=== PATIENT | male | born 1970 | race Caucasian/White ===

== ENCOUNTER 2019-08-08 11:46 | Outpatient (CLI) | payer BC, SELFPAY ==
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
== END 2019-08-08 12:06 ==
PROVIDERS: PCP Specialist/Technologist Athletic Trainer; Visit Provider Nurse Practitioner Family
DX: M79.645 Pain in left finger(s) (principal); M79.89 Other specified soft tissue disorders; M19.042 Primary osteoarthritis, left hand
CPT/HCPCS: 73140

== ENCOUNTER 2020-05-15 16:41 | Outpatient (REF) | payer BC, SELFPAY ==
[2020-05-15 20:35] LABS: Anion Gap 12.6 mmol/L (3-11); BUN 16 mg/dL (7-18); CO2 21.4 mmol/L (21.0-32.0); CREATININE 0.87 mg/dL (0.70-1.30); Calcium 9.1 mg/dL (8.5-10.1); Calculated LDL 131 mg/dL (<100); Chloride 103 mmol/L (98-107); Cholesterol 189 mg/dL (<200); Glucose 94 mg/dL (74-106); HDL Cholesterol 47 mg/dL (40-60); Magnesium 1.9 mg/dL (1.8-2.4); Sodium 137 mmol/L (136-145); Triglyceride 55 mg/dL (<150); Vitamin B12 514 pg/mL (193-986)
== END 2020-05-15 17:01 ==
LOC: NCHCN 16:41
PROVIDERS: PCP Specialist/Technologist Athletic Trainer; Visit Provider Nurse Practitioner Family
DX: Z00.00 Encounter for general adult medical examination without abnormal findings (principal); K21.9 Gastro-esophageal reflux disease without esophagitis
CPT/HCPCS: 80048; 80061; 82607; 83735

== ENCOUNTER 2021-06-03 18:58 | Outpatient (REF) | payer BC, SELFPAY ==
[2021-06-03 21:02] LABS: ALT 32 U/L (16-63); AST 20 U/L (15-37); Alkaline Phosphatase 79 U/L (46-116); Anion Gap 10.3 mmol/L (3-11); BUN 9 mg/dL (7-18); Bilirubin, Total 0.4 mg/dL (0.2-1.0); CO2 25.7 mmol/L (21.0-32.0); Calcium 8.9 mg/dL (8.5-10.1); Chloride 106 mmol/L (98-107); Glucose 96 mg/dL (74-106); Potassium 3.8 mmol/L (3.5-5.1); Sodium 142 mmol/L (136-145); TSH (W/Ref FT4) 2.01 uIU/mL (0.36-3.74)
== END 2021-06-03 18:59 | disposition home or self-care (01) ==
LOC: NCHCN 18:58
PROVIDERS: Visit Provider Nurse Practitioner Family
DX: Z00.00 Encounter for general adult medical examination without abnormal findings (principal); F10.99 Alcohol use, unspecified with unspecified alcohol-induced disorder; E04.9 Nontoxic goiter, unspecified
CPT/HCPCS: 80053; 84443

== ENCOUNTER 2021-11-29 18:16 | Outpatient (REF) | payer BC, SELFPAY ==
[2021-12-08 10:53] LABS: Methylphenidate Negative ng/mL (Cutoff: 10); Ritalinic Acid 318 ng/mL (Cutoff: 50)
== END 2021-11-29 18:17 | disposition home or self-care (01) ==
LOC: NCHCN 18:16
PROVIDERS: Visit Provider Nurse Practitioner Family
DX: F90.0 Attention-deficit hyperactivity disorder, predominantly inattentive type (principal)
CPT/HCPCS: 80360

== ENCOUNTER 2022-04-11 17:11 | Outpatient (REF) | payer OTHER, SELFPAY ==
--- NOTE | 2022-04-11 16:00 | ORMUBX_PTH ---
PATIENT: Connor Baltazar LOC: [facility] U#:[id number] AGE/SX: 51/M ROOM: RE04/11/[address]: Rodriguez Fabian MD : [id number] BED: DIS: 04/11/2022 SPEC #: [id number] RECD: 04/11/22 18:37 STATUS: ALEXANDRA REQ #: [id number] ERIN: 04/11/22 16:[address]: Rodriguez Fabian DEPT: Surgical Specimen RECD BY: Pooja Gonzales ENTERED: 04/11/22 18:38 SP TYPE: ORMUBX OT DR: Gina Garza Tissues: 1 - MUCOSA, NOS Procedures: GROSS AND MICRO LEVEL 4 SPECIAL STAIN 1 Comments: [id number]
== END 2022-04-11 17:12 | disposition home or self-care (01) ==
LOC: LBN 17:11
PROVIDERS: PCP Nurse Practitioner Family; Visit Provider Otolaryngology
DX: K13.70 Unspecified lesions of oral mucosa (principal); F17.200 Nicotine dependence, unspecified, uncomplicated
CPT/HCPCS: 88305; 88312

== ENCOUNTER 2022-11-15 18:25 | Outpatient (REF) | payer BC, SELFPAY ==
[2022-11-15 19:01] LABS: Anion Gap 9.5 mmol/L (3-11); BUN 13 mg/dL (7-18); CO2 24.5 mmol/L (21.0-32.0); CREATININE 0.8 mg/dL (0.70-1.30); Calcium 8.8 mg/dL (8.5-10.1); Chloride 106 mmol/L (98-107); Estimated GFR 106.48 (mL/min/1.73m2); Glucose 94 mg/dL (74-106); Potassium 4.5 mmol/L (3.5-5.1); Sodium 140 mmol/L (136-145)
== END 2022-11-15 18:26 | disposition home or self-care (01) ==
LOC: NCHCN 18:25
PROVIDERS: PCP Nurse Practitioner Family; Visit Provider Nurse Practitioner Family
DX: U07.1 COVID-19 (principal)
CPT/HCPCS: 80048

== ENCOUNTER 2023-07-09 13:21 | Emergency (ER) | payer BC, SELFPAY ==
[2023-07-09 13:25] VITALS: BP 139/86; PULSE 78; RESP 16; TEMP 37; O2SAT 96
[2023-07-09 13:30] VITALS: BP 125/90; PULSE 74; RESP 16; O2SAT 96
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
--- NOTE | 2023-07-09 15:08 | DI.RAD_ITS ---
Exam(s) XR SHOULDER RT COMPLETE 2+V EXAM: XR SHOULDER RT COMPLETE 2+V CLINICAL HISTORY: weakness, shoulder pain after pulling generator. TECHNIQUE: 2D digital imaging was performed. Five views. FINDINGS: BONES: No acute fracture is present. No bony destructive lesion is seen. JOINTS: No dislocation present. Degenerative changes AC joint. Mild spurring at glenoid. SOFT TISSUE: Calcification adjacent to greater tuberosity could indicate calcific tendinosis. Additi onal chronic appearing calcification lateral to the tip of the acromion. IMPRESSION: Degenerative changes. No acute abnormality. DATA REPOSITORY: RADIATION DOSE DELIVERED:
--- NOTE | 2023-07-09 15:21 | NUR.NOTE ---
Nursing Note: referral to ortho
--- NOTE | 2023-07-09 15:29 | DI.VRAD_ITS ---
PROCEDURE INFORMATION: Exam: XR Right Shoulder Exam date and time: 07/09/2023 3:01 PM Age: 52 years old Clinical indication: Other: Weakness, shoulder pain after pulling generator TECHNIQUE: Imaging protocol: Radiologic exam of the right shoulder. Views: 2 or more views. COMPARISON: CT Shoulder^SHOULDER (Adult) 22/06/2017 13:36 FINDINGS: Bones/joints: Degenerative changes of the acromioclavicular joint. No evidence for acute bony injury. Mild degenerative changes of the glenohumeral joint. Soft tissues: Soft tissue calcification along the superolateral aspect of the shoulder. IMPRESSION: 1. No acute bony findings. If clinical symptoms persist recommend followup film in 7-10 days. 2. Additional findings as discussed above. Dictated and Authenticated by: Fidelia Zuluaga MD. Ordering:JUNAID Eckert MD
[2023-07-09 15:30] VITALS: BP 146/84; PULSE 74; RESP 16; O2SAT 96
--- NOTE | 2023-07-10 07:58 | NUR.NOTE ---
Accessed Pts chart to complete [facility] document.
== END 2023-07-09 15:31 | disposition home or self-care (01) ==
PROVIDERS: Emergency Provider Physician Assistant; PCP Nurse Practitioner Family
DX: M25.511 Pain in right shoulder (principal); M25.812 Other specified joint disorders, left shoulder; M19.011 Primary osteoarthritis, right shoulder; F17.210 Nicotine dependence, cigarettes, uncomplicated
CPT/HCPCS: 99283; 73030

== ENCOUNTER 2023-08-01 01:21 | Outpatient (CLI) | payer BC, SELFPAY ==
[2023-08-01] MEDS: Levalbuterol HFA 15 GM INH 4 PUFF IH (08:52)
[2023-08-01] MEDS: Inhaler, Assist Device 1 EACH MC (08:52)
--- NOTE | 2023-08-01 10:36 | W.PFT ---
Date of service: 08/01/23 Time of Service: 07:54 Pulmonary Function Test Result Indications: COPD Interpretation Spirometry: There is no airflow limitation. No significant bronchodilator response. Lung Volumes: There is air trapping Diffusion Capacity: Normal diffusion Airway Pressure: Normal airways resistance Impression Normal pulmonary function with some air trapping Clinical Correlation therefore is recommended.
== END 2023-08-01 01:22 | disposition home or self-care (01) ==
LOC: RT 01:21
PROVIDERS: PCP Nurse Practitioner Family; Visit Provider Student in an Organized Health Care Education/Training Program
DX: J44.9 Chronic obstructive pulmonary disease, unspecified (principal)
CPT/HCPCS: 94060; 94726; 94729

== ENCOUNTER 2023-10-10 14:30 | Emergency (ER) | payer BC, SELFPAY ==
[2023-10-10] VITALS (14 sets, daily range): BP systolic 132–147; BP diastolic 86–94; PULSE 72–90; RESP 16–27; TEMP 36.5; O2SAT 93–99
--- OUTSIDE RECORDS SUMMARY | 2023-10-10 14:50 | XMS_ITS | Continuity of Care Document ---
Author Name Unknown Organization [facility] Address [address] [place] [id number] Encounter LTTL_PR FIN NBR [id number] Date(s): 09/20/22 - 09/20/[address] [id number] Encounter Diagnosis Encounter for drug screening(Discharge Diagnosis) - 09/20/22 Discharge Disposition: Home or Self Care Attending Physician: Xin Story PA-C
--- NOTE | 2023-10-10 16:06 | ED.GENADUL_ITS ---
HPI General Mode of arrival: ambulatory . Date/Time Provider Initiated Documentation: 10/10/23 14:30 . Limitations to Documentation: no limitations . Information obtained by: patient . History of Present Illness 52 year old M presents to the emergency department with the chief complaint of coughing up phlegm , described as moderate, Patient started experiencing this week(s) (3) and it has been intermittent. No relieving factors improve symptom(s), No exacerbating factors reported . Patient notes denies chest pain, diaphoresis, fever/chills and shortness of breath. Patient did receive the following treatments prior to arrival, none Related Data Home Medications Medication Instructions Recorded Confirmed albuterol sulfate 90 mcg/actuation 2 puff inhalation Q6H PRN 04/24/17 07/27/23 aerosol inhaler (ProAir HFA) methylphenidate HCl 20 mg tablet 20 mg PO DAILY 05/22/17 07/09/23 (Ritalin) pantoprazole 40 mg tablet,delayed 40 mg PO DAILY 12/01/21 07/27/23 release guaifenesin 600 mg tablet, 600 mg PO BID 05/17/22 07/27/23 extended release 12 hr (Mucinex) methylphenidate HCl 54 mg 54 mg PO QAM 05/17/22 07/27/23 tablet,extended release 24 hr tiotropium 2.5 mcg-olodaterol 2.5 2 puff inhalation DAILY #4 grams 07/27/23 07/27/23 mcg/actuation mist for inhalation (Stiolto Respimat) levofloxacin 750 mg tablet 750 mg PO DAILY #7 tabs 10/10/23 prednisone 20 mg tablet 60 mg (3 x 20 mg) PO DAILY 4 days 10/10/23 #12 tabs Previous Rx's Medication Instructions Recorded tiotropium 2.5 mcg-olodaterol 2.5 2 puff inhalation DAILY #4 grams 07/27/23 mcg/actuation mist for inhalation (Stiolto Respimat) levofloxacin 750 mg tablet 750 mg PO DAILY #7 tabs 10/10/23 prednisone 20 mg tablet 60 mg (3 x 20 mg) PO DAILY 4 days 10/10/23 #12 tabs Allergies Allergy/AdvReac Type Severity Reaction Status Date / Time codeine Allergy Verified 07/27/23 08:52 varenicline tartrate AdvReac Severe mood Unverified 07/27/23 08:52 [From Chantix] bupropion HCl AdvReac Mild rash Unverified 07/27/23 08:52 [From Wellbutrin] General Stated Complaint: RespSymp JHONY: 3 Review of Systems All systems reviewed & are unremarkable except as noted in HPI and below Constitutional Constitutional: Denies chills, Denies fever(s) and Denies weakness Cardiovascular Cardiovascular: Denies chest pain and Denies dyspnea Respiratory Respiratory: Reports cough and Denies dyspnea Gastrointestinal Gastrointestinal: Denies abdominal pain, Denies nausea and Denies vomiting Genitourinary Genitourinary: Denies dysuria Musculoskeletal Musculoskeletal: Denies joint swelling Integumentary/Breasts Skin/Breast: Denies rash Neurologic Neurologic: Denies weakness PFSH All Active Problems (Updated 10/10/23 @ 17:23 by Antonio Garcia MD) Productive cough (Acute) Impacted cerumen of both ears (Acute) Oral thrush (Acute) Mouth lesion (Acute) Nicotine dependence, cigarettes, uncomplicated (Acute) Smoker (Acute) Anxiety and depression (Chronic) Anger (Acute) ADD (attention deficit disorder) (Acute) GERD (gastroesophageal reflux disease) (Chronic) Constipation (Acute) Asthma (Chronic) Black stools (Acute) Abdominal distension (Acute) Dyspnea (Acute) Hiatal hernia (Chronic) COPD (chronic obstructive pulmonary disease) (Chronic) Andrews esophagus (Acute) Alcohol use (Acute) Enlarged thyroid (Acute) Oral mucosal lesion (Acute) Irritation of right eye (Acute) Complete tear of left rotator cuff (Acute 07/17/17) Social History Smoking/Tobacco Use Status: Current every day Tobacco Type: cigarettes Smoking risk assessment performed?: Yes Alcohol Intake: current Alcohol Intake frequency: 0-2 drinks per day Alcohol type: beer and hard liquor Drug use: Occasionally Substance use type: marijuana Housing: house Do you feel safe at home: Yes Do you feel safe in your relationship?: Yes Additional Social history: Current tobacco user 1pck/day , Started in 1984 with a pack year of 60+. PAWSS Have you Been Recently Intoxicated or Drunk Within the Last 30 days?: Yes Have you Ever Experienced Previous Episodes of Alcohol Withdrawal?: No Have you ever Experienced Withdrawal Seizures?: No Have you ever Experienced Delirium Tremens(DT)s?: No Have you ever undergone Alcohol Rehabilitation Treatment (i.e, inpt ot outpatient treatment programs)?: No Have you ever Experienced Blackouts?: No Have you ever Combined Alcohol with other Downers within the last 90 days?: No Have you ever Combined Alcohol with any other Substance of Abuse during the last 90 days?: No Positive Blood Alcohol level on Presentation? [PCS.BAL]: No Evidence of Increased Autonomic Activity (i.e. HR>120, tremor, sweating, agitation, nausea)?: No Result: 1 Exam Const General: no acute distress Orientation: alert HENMT Head: normal to inspection Ears: external ears normal General nose exam: external nose normal Mouth: moist mucous membranes Eyes General: appearance normal, both eyes and all related structures Neck Neck: normal visual inspection Resp Effort & Inspection: normal respiratory effort and able to speak in complete sentences Auscultation: wheezes Cardio Jugular venous pressure: no JVD Rate: regular rate Heart Sounds: no murmurs Skin General skin exam: no rashes or lesions noted Neuro General: patient alert and patient oriented x3 Extrem General: normal to inspection Psych Mental Status: mental status grossly normal Course Vital Signs Vital signs: Vital Signs Temperature 36.5 C 10/10/23 14:43 Pulse 86 10/10/23 14:43 Respiratory Rate 18 10/10/23 14:43 Blood Pressure 144/86 H 10/10/23 14:43 Pulse Oximetry 98 10/10/23 14:43 Temperature 36.5 C 10/10/23 14:43 Temperature Source Temporal Artery Scan 10/10/23 14:43 Pulse 86 10/10/23 14:43 Respiratory Rate 18 10/10/23 14:43 Respiratory Effort Short of Breath 10/10/23 16:03 Blood Pressure 144/86 H 10/10/23 14:43 Blood Pressure Position Sitting 10/10/23 14:43 Pulse Oximetry 98 10/10/23 14:43 Oxygen Delivery Method Room Air 10/10/23 14:43 Oxygen Flow Rate 0 10/10/23 14:43 Medical Decision Making 52 yo male with hx of smoking on inhalers who comes in with 3 weeks of p roductive cough. Denies any chest pain or dyspnea. HE is caox4 on arrival walking without respiratory distress and speaking in full sentences. HE does have wheezing in all lung schwartz on exam bilaterally, no jvd, no leg swelling no calf tenderness. Suspect copd exacerbation vs pneumonia, will check cbc, cmp, procalcitonin and cxr and treat with duoneb and solumedrol xray and labs unremarkable, pt stable, given increased cough from baseline will start antibiotics and also short course of prednisone. ADvised to f/u with pcp and return precautions given. HE has also noticed an increase in his gerd symptoms, has no abdmoinal tenderness, advised he can continue pantoprazole and also take tums as needed and to follow label instructions Differential Diagnosis Differential Diagnosis: pneumonia, copd, bronchitis Medical Records Medical records reviewed: Yes I reviewed the patient's medical records. Imaging Data Radiologic Study: Attestation: I personally reviewed and interpreted this imaging study as follows: Imaging: X-Ray Radiologist's impression: no acute findings Lab Data Lab results reviewed: Yes I reviewed the patient's lab results. Quality:SDOH Health Related Social Needs: No Data to Display Discharge Plan Disposition Patient Disposition: Home Condition: Stable Discharge Details Clinical Impression: Productive cough Primary Care Provider: Gina Garza ED Provider: Antonio Garcia Garden Meds and New Rx's Prescriptions: New prednisone 20 mg tablet 60 mg PO DAILY 4 Days Qty: 12 0RF levofloxacin 750 mg tablet 750 mg PO DAILY Qty: 7 0RF Continued methylphenidate HCl 54 mg tablet extended release 24hr 54 mg PO QAM Rx Instructions: per pt (05/17/22) Stiolto Respimat 2.5-2.5 mcg/actuation mist 2 puff inhalation DAILY Qty: 4 12RF albuterol sulfate [ProAir HFA] 8.5 GM HFA aerosol inhaler 2 puff Inhalation Q6H PRN methylphenidate HCl [Ritalin] 20 MG tablet 20 mg PO DAILY pantoprazole 40 mg tablet,delayed release (DR/EC) 40 mg PO DAILY guaifenesin [Mucinex] 600 mg tablet extended release 12hr 600 mg PO BID Rx Instructions: as needed Discharge Instructions Additional Instructions: your blood work and xray did not show any concerning findings follow up with your primary care provider within 1 week you can take tums along with your pantoprazole, follow dosing instructions on the packaging if you feel more ill, have difficulty breathing or severe pain return to the emergency department
[2023-10-10] MEDS: Albuterol/Ipratropium 3 ML UPD VIAL UPD (16:14)
[2023-10-10] MEDS: methylPREDNISolone SUCC 125 MG VIAL IVP (16:14)
[2023-10-10 16:16] LABS: Abs Immature Grans 0.03 10^3/uL (0.0-0.06); Absolute Basophil Count 0.06 10^3/uL (0.0-0.2); Absolute Eosinophil Count 0.18 10^3/uL (0.0-0.7); Absolute Lymphocyte Count 2.25 10^3/uL (1.2-3.4); Absolute Monocyte Count 0.66 10^3/uL (0.1-0.8); Absolute Neutrophil Count 5.48 10^3/uL (1.2-6.7); Basophils % 0.7; Eosinophils % 2.1; HCT 48.3 % (40.0-50.0); HGB 16.7 g/dL (13.5-17.5); Immature Grans % 0.3; MCH 32.1 pg (27.0-33.0); MCHC 34.6 % (32.0-36.0); MCV 93 fL (80-95); MPV 9.1 fL (8.0-11.0); Monocytes % 7.6; Neutrophils % 63.3; Platelet Count 306 10^3/uL (130-400); RBC 5.21 10^6/uL (4.36-5.78); RDW 12.7 % (11.8-14.1); RDW-SD 43.3 fL; WBC 8.66 10^3/uL (4.4-10.8)
[2023-10-10 16:29] LABS: PTT Activated 25.8 sec (23.6-32.8); Prothrombin Time 10.5 sec (9.1-11.1)
[2023-10-10 16:31] LABS: ALT 27 U/L (16-63); AST 18 U/L (15-37); Albumin 4.1 g/dL (3.4-5.0); Alkaline Phosphatase 71 U/L (46-116); Anion Gap 8.7 mmol/L (3-11); BUN 11 mg/dL (7-18); Bilirubin, Total 0.4 mg/dL (0.2-1.0); CO2 27.3 mmol/L (21.0-32.0); Calcium 9.2 mg/dL (8.5-10.1); Chloride 103 mmol/L (98-107); Estimated GFR 90.56 (mL/min/1.73m2); Glucose 136 mg/dL (74-106); Potassium 4.3 mmol/L (3.5-5.1); Sodium 139 mmol/L (136-145); Total Protein 7.9 g/dL (6.4-8.2)
[2023-10-10 16:41] LABS: Source Nasal/Nares
[2023-10-10 16:44] LABS: Procalcitonin < 0.1 ng/mL
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
[2023-10-10 17:15] LABS: COVID-19 PCR Negative (Negative)
== END 2023-10-10 17:36 | disposition home or self-care (01) ==
PROVIDERS: Emergency Provider Emergency Medicine; PCP Nurse Practitioner Family
DX: R05.8 Other specified cough (principal)
CPT/HCPCS: 36415; 80053; 84145; 87635; 94640; 96374; 99284; 71046; 83735; 85025; 85610; 85730; J2930; J7620

== ENCOUNTER 2024-09-04 11:43 | Outpatient (CLI) | payer BC, SELFPAY ==
--- NOTE | 2024-09-04 08:15 | DI.RAD_ITS ---
Exam(s) XR SHOULDER RT COMPLETE 2+V EXAM: XR SHOULDER RT COMPLETE 2+V CLINICAL HISTORY: LEFT SHOULDER PAIN. TECHNIQUE: 2D digital imaging was performed. COMPARISON: CR,XR XR SHOULDER RT COMPLETE 2+V from 07/09/2023 FINDINGS: Two views There is no evidence of acute fracture nor dislocation. Subacromial space is not diminished. Howeve r, there is again noted a calcific density in the soft tissues immediately above the greater tuberosi ty of the lateral humeral head consistent with calcific rotator cuff tendinitis-bursitis. This calci fication measures 7 x 4 mm. The subacromial space itself is not diminished. Subtle cortical irregularity is noted at the inferior aspect of the osseous glenoid, similar to previ ous. Probably degenerative but correlation with any prior dislocation recommended. There are mild d egenerative changes in glenohumeral joint. IMPRESSION: Calcific rotator cuff tendinitis again noted. Other findings as above. DATA REPOSITORY: RADIATION DOSE DELIVERED:
== END 2024-09-04 11:44 | disposition home or self-care (01) ==
LOC: DIORS 11:43
PROVIDERS: PCP Nurse Practitioner Family; Visit Provider Student in an Organized Health Care Education/Training Program
DX: M75.31 Calcific tendinitis of right shoulder (principal)
CPT/HCPCS: 73030

== ENCOUNTER 2024-10-01 01:03 | Outpatient (CLI) | payer BC, SELFPAY ==
--- NOTE | 2024-10-01 06:30 | DI.MRI_ITS ---
Exam(s) MR UPPER JOINT RT WO EXAM: MR UPPER JOINT RT WO CLINICAL HISTORY: R SHOULDER PAIN,rt rotator cuff tear,m75.101. TECHNIQUE: Multiplanar multisequence MRI was performed. COMPARISON: CR XR SHOULDER RT COMPLETE 2+V from 09/04/2024 FINDINGS: The examination is limited due to patient motion artifact. BONES: There is no fracture or contusion pattern. JOINTS: Moderate degenerative changes are seen at the acromioclavicular joint. There is an inferior spur at the acromioclavicular joint impinging upon the supraspinatus muscle. The glenohumeral joint is normal. No significant joint effusion. TENDONS: Supraspinatus: There is thickening and intermediate signal seen in the supraspinatus tendon consisten t with tendinosis. Partial tear cannot be excluded. Full-thickness supraspinatus tear is not visual ized. Infraspinatus: Unremarkable. Subscapularis: Unremarkable. Teres Minor: Unremarkable. Biceps and Victor: Unremarkable. MUSCLES: Moderate fatty atrophy of the infraspinatus muscle is noted. GLENOID LABRUM: There is hyperintense signal seen on the axial images around the posterior superior l abrum. The labrum appears somewhat heterogeneous in this area which may represent degeneration or te ar. SOFT TISSUES: Unremarkable. LIGAMENTS: Unremarkable. OTHER: There is mild fluid seen in the subacromial subdeltoid bursa. IMPRESSION: 1. Examination is limited by patient motion artifact. 2. Tendinosis of the supraspinatus tendon with thickening and intermediate signal noted. Partial tea r cannot be excluded. There is no evidence of a full-thickness rotator cuff tear. 3. Moderate fatty atrophy of the infraspinatus muscle. No soft tissue mass is appreciated. 4. Hyperintense signal seen on the axial images around the posterior superior labrum with some hetero geneity of the labrum in this region. This may represent degeneration and/or tear. 5. Moderate degenerative changes of the acromioclavicular joint which impinge upon the superior aspec t of the supraspinatus muscle. DATA REPOSITORY:
== END 2024-10-01 01:23 ==
LOC: DI 01:03
PROVIDERS: PCP Nurse Practitioner Family; Visit Provider Student in an Organized Health Care Education/Training Program
DX: M19.011 Primary osteoarthritis, right shoulder (principal)
CPT/HCPCS: 73221

== ENCOUNTER 2025-02-06 09:22 | Outpatient (REF) | payer BC, SELFPAY ==
[2025-02-06 16:49] LABS: *AMPHETAMINES SCREEN URINE Negative (Negative); *BARBITURATES SCREEN URINE Negative (Negative); *BENZODIAZEPINES SCREEN URINE Negative (Negative); Cannabinoids THC Positive (Negative); Cocaine Screen,Urine Negative (Negative); METHADONE URINE SCREEN Negative (Negative); OPIATES URINE SCREEN Negative (Negative)
[2025-02-06 16:51] LABS: Tricyclic Antidepressants Negative (Negative)
[2025-02-11 10:31] LABS: Methylphenidate 3407 ng/mL (Cutoff: 10); Ritalinic Acid >100000 ng/mL (Cutoff: 50)
== END 2025-02-06 09:23 | disposition home or self-care (01) ==
LOC: NCHCN 09:22
PROVIDERS: PCP Nurse Practitioner Family; Visit Provider Nurse Practitioner Family
DX: F90.9 Attention-deficit hyperactivity disorder, unspecified type (principal); Z79.899 Other long term (current) drug therapy
CPT/HCPCS: 80307; 80360

== ENCOUNTER 2025-05-09 15:25 | Outpatient (REF) | payer BC, SELFPAY ==
[2025-05-09 16:52] LABS: ALT 28 U/L (16-63); AST 20 U/L (15-37); Albumin 4.0 g/dL (3.4-5.0); Alkaline Phosphatase 81 U/L (46-116); Anion Gap 12.9 mmol/L (3-11); BUN 7 mg/dL (7-18); Bilirubin, Total 0.6 mg/dL (0.2-1.0); CO2 25.1 mmol/L (21.0-32.0); Calcium 9.1 mg/dL (8.5-10.1); Calculated LDL 115 mg/dL (<100); Chloride 102 mmol/L (98-107); Cholesterol 195 mg/dL (<200); Estimated GFR 105.17 (mL/min/1.73m2); Glucose 103 mg/dL (74-106); HDL Cholesterol 55 mg/dL (>or=40); Potassium 4.2 mmol/L (3.5-5.1); Sodium 140 mmol/L (136-145); Total Protein 7.2 g/dL (6.4-8.2); Triglyceride 125 mg/dL (<150); Vitamin B12 532 pg/mL (193-986)
[2025-05-10 10:43] LABS: HIV-1/2 Ag & Ab Screen Negative (Negative)
[2025-05-11 10:18] LABS: Hepatitis C Ab w Rflx HCV PCR Negative (Negative)
== END 2025-05-09 15:26 | disposition home or self-care (01) ==
LOC: NCHCN 15:25
PROVIDERS: PCP Nurse Practitioner Family; Visit Provider Nurse Practitioner Family
DX: Z00.00 Encounter for general adult medical examination without abnormal findings (principal)
CPT/HCPCS: 80053; 80061; 86803; 87389; 82607